=== PATIENT | male | born 1950 | race African-American/Black ===

== ENCOUNTER 2023-07-26 10:21 | Emergency (ER) | payer MEDICARE ==
[2023-07-26] MEDS ORDERED: HYDROcodone/Acetaminophen 5/325 mg Tablet ONE (11:39)
== END 2023-07-26 12:10 | disposition home or self-care (01) ==
LOC: NAV ERS 10:21
DX: S52.501A Unspecified fracture of the lower end of right radius, initial encounter for closed fracture (principal); F17.210 Nicotine dependence, cigarettes, uncomplicated; I10 Essential (primary) hypertension; W01.0XXA Fall on same level from slipping, tripping and stumbling without subsequent striking against object, initial encounter
CPT/HCPCS: 29125

== ENCOUNTER 2023-09-23 08:49 | Emergency (ER) | payer MEDICARE, OTHER ==
[2023-09-23] MEDS ORDERED: Ketorolac Tromethamine 30 MG (1 mL) VIAL ONE (09:31)
== END 2023-09-23 09:55 | disposition home or self-care (01) ==
LOC: NAV ERS 08:49
DX: M10.9 Gout, unspecified (principal); F17.210 Nicotine dependence, cigarettes, uncomplicated
CPT/HCPCS: J1885

== ENCOUNTER 2023-09-23 10:09 | Outpatient (CLI) | payer MEDICARE, OTHER | END 2023-09-23 10:10 | disposition home or self-care (01) | LOC: NAV RAD 10:09 | PROVIDERS: ATTEND Family Medicine | DX: I10 Essential (primary) hypertension (principal) | CPT/HCPCS: 71046; 96372; 99283; J1885 ==

== ENCOUNTER 2024-01-28 18:03 | Emergency (ER) | payer OTHER ==
[2024-01-28] MEDS ORDERED: Acetaminophen 325 MG TAB ONE (19:10)
== END 2024-01-28 20:00 | disposition home or self-care (01) ==
LOC: NAV ERS 18:03
DX: S93.401A Sprain of unspecified ligament of right ankle, initial encounter (principal); S16.1XXA Strain of muscle, fascia and tendon at neck level, initial encounter; S90.111A Contusion of right great toe without damage to nail, initial encounter; I25.10 Atherosclerotic heart disease of native coronary artery without angina pectoris; I10 Essential (primary) hypertension; F17.210 Nicotine dependence, cigarettes, uncomplicated; W22.8XXA Striking against or struck by other objects, initial encounter; Z86.73 Personal history of transient ischemic attack (TIA), and cerebral infarction without residual deficits
CPT/HCPCS: 29515; 72125

== ENCOUNTER 2024-02-10 00:35 | Emergency (ER) | payer OTHER ==
[2024-02-10] MEDS ORDERED: Ibuprofen 200 MG TAB ONE (00:56)
== END 2024-02-10 01:42 | disposition home or self-care (01) ==
LOC: NAV ERS 00:35
DX: M70.21 Olecranon bursitis, right elbow (principal); M77.8 Other enthesopathies, not elsewhere classified; R03.0 Elevated blood-pressure reading, without diagnosis of hypertension; E11.9 Type 2 diabetes mellitus without complications; I10 Essential (primary) hypertension; F17.210 Nicotine dependence, cigarettes, uncomplicated
CPT/HCPCS: 99283